=== PATIENT | female | born 1960 | race Hispanic/Latino ===

== ENCOUNTER 2020-03-05 14:45 | Outpatient (CLI) | payer OTHER ==
--- NOTE | 2020-03-05 16:22 | RAD ---
Exam:Right ankle 3 views HISTORY: Pain. Patient fell a week ago. COMPARISON: None FINDINGS: With regards to the ankle: No fracture, cortical irregularity or periosteal reaction. Joint spaces. Incompletely evaluated fracture of the base of the fifth metatarsal. IMPRESSION: No evidence of ankle fracture. There is a fracture of the base of the fifth metatarsal. D edicated right foot radiograph is recommended. CODE T
== END 2020-03-05 14:46 | disposition home or self-care (01) ==
LOC: BICRAD 14:45
PROVIDERS: ATTEND Nurse Practitioner Family
DX: M25.571 Pain in right ankle and joints of right foot (principal); S92.351A Displaced fracture of fifth metatarsal bone, right foot, initial encounter for closed fracture